=== PATIENT | female | born 1975 | race Caucasian/White ===

== ENCOUNTER 2023-12-29 12:17 | Outpatient (OUT) | payer BC, SELFPAY ==
--- NOTE | 2023-12-29 12:39 | XR_ITS ---
The [address] [address] Patient Name: THADDEUS ELLISON MRN: [id number] date: 1975 Sex: F Assigned Patient Location: LAB Current Patient Location: Accession/Order Number: [id number] Exam Date: 12/29/2023 12:40 Report Date: 12/30/2023 07:38 At the request of: CHRISTIE KING Procedure: XR hand RT min 3V PROCEDURE: XR hand RT min 3V HISTORY: Pain in right hand M79.641 ; chronic pain in palm of hand and base of thumb COMPARISON: None. FINDINGS: BONES:Slight lateral subluxation of the first metacarpal in relation to the trapezium. No appreciable fracture. SOFT TISSUES:No visible soft tissue swelling. EFFUSION:None visible. OTHER: Negative. XR/XR hand RT min 3V IMPRESSION: 1. Mild lateral subluxation involving the first carpal-metacarpal joint of uncertain etiology. No fracture or significant degenerative joint disease. Electronically authenticated by: JOSE MARIA COPE Date: 12/30/2023 07:38
[2023-12-29 12:42] LABS: Basophils Percent Auto 0.4 % (0.2-2.0); Eosinophils Absolute Auto 0.1 10^3/uL (0.0-0.7); Eosinophils Percent Auto 0.7 % (0.9-7.0); Hematocrit 33.9 % (36.0-48.0); Hemoglobin 10.8 g/dL (12.0-16.0); Immature Granulocytes Abs Auto 0.02 10^3/uL (0.00-0.03); Immature Granulocytes Pct Auto 0.3 % (0.0-0.5); Lymphocytes Absolute Auto 2.2 10^3/uL (1.2-3.8); Lymphocytes Percent Auto 29.3 % (20.5-60.0); Mean Corpuscular HGB Conc 31.9 g/dL (29.9-35.2); Mean Corpuscular Hemoglobin 26.7 pg (26.7-34.0); Mean Corpuscular Volume 83.9 fL (81.0-99.0); Mean Platelet Volume 8.8 fL (9.5-13.5); Monocytes Absolute Auto 0.5 10^3/uL (0.3-0.8); Monocytes Percent Auto 6.6 % (1.7-12.0); Neutrophils Absolute Auto 4.8 10^3/uL (1.4-6.5); Neutrophils Percent Auto 62.7 % (43.0-75.0); Platelet Count 413 10^3/uL (150-450); Red Blood Count 4.04 10^6/uL (4.20-5.40); Red Cell Distribution Width 14.5 % (11.0-15.0); White Blood Count 7.6 10^3/uL (4.0-11.0)
[2023-12-29 13:25] LABS: TSH W/ REFLEX FT4 1.092 uIU/mL (0.358-3.740)
[2023-12-31 07:07] LABS: Estradiol 56.9 pg/mL (.); FSH 12.6 mIU/mL (.)
== END 2023-12-29 12:18 | disposition home or self-care (01) ==
LOC: LAB 12:22
PROVIDERS: PCP Family Medicine; Visit Provider Family Medicine
DX: R53.83 Other fatigue (principal); N92.0 Excessive and frequent menstruation with regular cycle; M79.641 Pain in right hand
CPT/HCPCS: 36415; 73130; 82670; 83001; 84443; 85025